=== PATIENT | female | born 1975 | race Caucasian/White ===

== ENCOUNTER 2018-01-22 07:49 | Inpatient (IN) | payer OTHER ==
[2018-01-22] MEDS ORDERED: PROPOFOL 20 ML (11:27)
[2018-01-22] MEDS ORDERED: ROCURONIUM 50 MG INJ (11:27)
[2018-01-22] MEDS ORDERED: FENTAnyl 50 MCG/ML VIAL (11:27)
[2018-01-22] MEDS ORDERED: GLYCOPYRROLATE 0.4 MG INJ (11:27)
[2018-01-22] MEDS ORDERED: ONDANSETRON 4 MG INJ (11:27)
[2018-01-22] MEDS ORDERED: MIDAZOLAM 1 MG/ML 2 ML INJ (11:27)
[2018-01-22] MEDS ORDERED: NEOSTIGMINE 3 MG/3 ML SYRINGE (11:27)
[2018-01-22] MEDS ORDERED: CEFAZOLIN 1 GM INJ (11:27)
[2018-01-22] MEDS ORDERED: morphine SULFATE/PF (10 MG/10 ML) INJ (11:27)
[2018-01-22] MEDS ORDERED: DEXAMETHASONE 4 MG/ML 1 ML INJ (11:27)
[2018-01-22] MEDS ORDERED: ALBUTEROL 0.083% (NEB) 2.5 MG/3 ML AMP HHN (11:30)
[2018-01-22] MEDS ORDERED: EPHEDrine SULFATE 50 MG/5 ML SYG IV (11:30)
[2018-01-22] MEDS ORDERED: OXYCODONE/ACETAMINOPHEN (5/325) TAB PO ×2 (11:30)
[2018-01-22] MEDS ORDERED: IPRATROPIUM (NEB) 0.5 MG/2.5 ML AMP HHN (11:30)
[2018-01-22] MEDS ORDERED: NALOXONE (0.4 MG/ML) INJ IV (11:30)
[2018-01-22] MEDS ORDERED: KETOROLAC 30 MG INJ IV (11:30)
[2018-01-22] MEDS ORDERED: DIPHENHYDRAMINE 50 MG INJ IV ×2 (11:30)
[2018-01-22] MEDS ORDERED: ONDANSETRON 4 MG INJ IV ×2 (11:30)
[2018-01-22] MEDS ORDERED: TRIMETHOBENZAMIDE 100 MG/ML VIAL IM ×2 (11:30)
[2018-01-22] MEDS ORDERED: MIDAZOLAM 1 MG/ML 2 ML INJ IV (11:30)
[2018-01-22] MEDS ORDERED: HYDROmorphONE 1 MG/5 ML IV SYRINGE IV ×3 (11:30)
[2018-01-22] MEDS ORDERED: NALBUPHINE HCL (10 MG/1 ML) INJ IV (11:30)
[2018-01-22] MEDS ORDERED: MEPERIDINE 25 MG INJ IV (11:30)
[2018-01-22] MEDS ORDERED: LABETALOL HCL 20MG INJ IV (11:30)
[2018-01-22] MEDS ORDERED: hydrALAzine 20 MG INJ IV (11:30)
[2018-01-22] MEDS ORDERED: FENTAnyl 50 MCG/ML VIAL IV ×3 (11:30)
[2018-01-22] MEDS ORDERED: HYDROmorphONE 0.5 MG/0.5 ML SYG IV ×2 (11:30)
[2018-01-22] MEDS: BUPIVACAINE 0.25%/EPI (SDV) 10 ML INJ (12:12)
[2018-01-22] MEDS ORDERED: POLYMYXIN/BACITRACIN 1L IRRIG (12:39)
[2018-01-22] MEDS ORDERED: HYDROCODONE/APAP (5/325) TAB PO ×2 (15:00)
[2018-01-22] MEDS ORDERED: ONDANSETRON INJ 6 MG in DEXTROSE 5% 50 ML IVPB (15:00)
[2018-01-22] MEDS ORDERED: ZOLPIDEM 5 MG TAB PO (15:00)
[2018-01-22] MEDS ORDERED: BISACODYL (EC) 5 MG TAB PO (15:00)
[2018-01-22] MEDS: KETOROLAC 30 MG INJ IV ×2 (15:17→20:57)
[2018-01-22] MEDS: LACTATED RINGER'S 1,000 ML IV ×2 (15:20→23:25)
[2018-01-22] MEDS: METOCLOPRAMIDE 10 MG TAB PO (17:47)
[2018-01-22] MEDS ORDERED: CEFAZOLIN 1 GM/50 ML (PMX) 50 ML IVPB (20:54)
[2018-01-22] MEDS: DIPHENHYDRAMINE 50 MG CAP PO (21:04)
[2018-01-22] MEDS: CEFAZOLIN 1 GM/50 ML (PMX) 50 ML IVPB (21:05)
[2018-01-23] MEDS: METOCLOPRAMIDE 10 MG TAB PO ×5 (00:55→23:46)
[2018-01-23] MEDS: KETOROLAC 30 MG INJ IV ×4 (03:37→20:57)
[2018-01-23 05:17] LABS: ADD MAN DIFF? NO
[2018-01-23 05:27] LABS: WHITE BLOOD COUNT 11.2 10^3/ul (4.8-10.8)
[2018-01-23 05:27] LABS: BASOPHILS % 0.1 % (0.0-2.0); HEMATOCRIT 29.2 % (37.0-47.0); LYMPHOCYTES # 1.3 10^3/ul (0.8-2.9); LYMPHOCYTES % 11.9 % (15.0-51.0); MEAN CORPUSCULAR HEMOGLOBIN 22.4 pg (29.0-33.0); MEAN CORPUSCULAR HGB CONC 30.8 g/dl (32.0-37.0); MEAN CORPUSCULAR VOLUME 72.6 fl (82.0-101.0); MEAN PLATELET VOLUME 10.6 fl (7.4-10.4); MONOCYTE # 0.7 10^3/ul (0.3-0.9); MONOCYTES % 6.3 % (0.0-11.0); NEUTROPHIL # 9.1 10^3/ul (1.6-7.5); NEUTROPHILS % 81.3 % (39.0-77.0); PLATELET COUNT 264 10^3/UL (140-415); RED BLOOD COUNT 4.02 10^6/ul (4.20-5.40); RED CELL DISTRIBUTION WIDTH 21.1 % (11.5-14.5)
[2018-01-23 05:58] LABS: ANION GAP 10 (5-13); BLOOD UREA NITROGEN 5 mg/dl (7-20); CARBON DIOXIDE 24 mmol/L (21-31); CHLORIDE 108 mmol/L (97-110); CREATININE 0.54 mg/dl (0.44-1.00); POTASSIUM 4.3 mmol/L (3.5-5.1); SODIUM 142 mmol/L (135-144)
[2018-01-23] MEDS: CEFAZOLIN 1 GM/50 ML (PMX) 50 ML IVPB ×3 (06:18→21:57)
[2018-01-23] MEDS: LACTATED RINGER'S 1,000 ML IV (11:27)
[2018-01-23] MEDS: BISACODYL (EC) 5 MG TAB PO (14:54)
[2018-01-23] MEDS: SOD FERRIC GLUC COMPLX 125 MG in SOD CHLORIDE 0.9% 100 ML IVPB (15:57)
[2018-01-24] MEDS: KETOROLAC 30 MG INJ IV ×2 (03:11→09:45)
[2018-01-24] MEDS: METOCLOPRAMIDE 10 MG TAB PO ×2 (05:24→12:23)
[2018-01-24] MEDS: CEFAZOLIN 1 GM/50 ML (PMX) 50 ML IVPB ×2 (05:24→14:21)
== END 2018-01-24 15:37 | disposition home or self-care (01) | DRG 743 ==
LOC: REC 07:49 → PP2 15:58
PROC: 0UT97ZZ Resection of Uterus, Via Natural or Artificial Opening (ICD-10-PCS; principal; 2018-01-22 11:22)
PROC: 0JQC0ZZ Repair Pelvic Region Subcutaneous Tissue and Fascia, Open Approach (ICD-10-PCS; 2018-01-22 11:22)
PROC: 0JQC0ZZ Repair Pelvic Region Subcutaneous Tissue and Fascia, Open Approach (ICD-10-PCS; 2018-01-22 11:22)
PROC: 0TSD0ZZ Reposition Urethra, Open Approach (ICD-10-PCS; 2018-01-22 11:22)
DX: D25.9 Leiomyoma of uterus, unspecified (principal); N92.1 Excessive and frequent menstruation with irregular cycle; N39.46 Mixed incontinence; N81.10 Cystocele, unspecified; N81.6 Rectocele; K59.00 Constipation, unspecified; N81.89 Other female genital prolapse
CPT/HCPCS: 80051; 82565; 84520; 85025; 86850; 86900; 86901; 86920; 87086; 88305